=== PATIENT | female | born 1960 | race Caucasian/White ===

== ENCOUNTER 2019-09-16 14:35 | Inpatient (IN) ==
[2019-09-16] MEDS ORDERED: CATAPRES TAB 0.1 MG PO ONE (14:52)
--- NOTE | 2019-09-16 15:02 | DR.WEAKNES ---
HPI Time Seen Time Seen by Provider: 09/16/19 14:50 Primary Care Physician Primary Care Physician: NFD Complaints Chief Complaint Doctors Comments: Pt noticed weakness left arm at 1:00 am today. No cp or SOB. No headache or blurred vision. Decided to come to ED now. Weak left leg. Pt smokes. Doesn't go to a doctor. Takes no meds. Says she has had hi BP for years, untreated Chief Complaint:: PT. 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 PT. STATES HER LEFT LEG FEELS WEAK ALSO. IN TRIAGE, LEFT HAND MOTORCYCLE DELIVERER MUCH MORE WEAKER THAN THE RIGHT. Reviewed Nurses Notes Reviewed: Yes Source History Provided: Patient Mode of Arrival Mode of Arrival: Ambulatory Timing Onset of Chief Complaint: 09/16/19 Since onset, symptoms are:: Unchanged Symptom Onset: Known Onset of Symptoms Start Date: 09/16/19 Onset of Symptoms Start Time: 01:00 Duration Duration: Since Onset Context Onset: Spontaneous Symptoms: Weakness and Difficulty walking History of: None Stroke Symptoms: Weakness of limb Location Weakness Location: Left, Sided, Arm and Leg Associated Signs and Symptoms Associated Signs and Symptoms: None PMH PMH Past Medical History: No Past Medical History Comment: HTN, untreated Past Surgical History: Yes Surgical History: , Cholecystectomy, Hysterectomy and Other Past Surgical History Comment: RIGHT ANKLE Family History History of Family Medical Conditions: Yes Family Medical History: Diabetes Mellitus, [place], Coronary Artery Disease and Hypertension Social History Does patient currently use any type of tobacco product: Yes Have you used tobacco products in the last 12 months: Yes Type of Tobacco Use: Cigarettes Does any household member use tobacco: No Alcohol Use: None Do you use any recreational Drugs:: No Lives With: Family Lives Where: Home infectious screening In the last 2 months have you had wt loss of >10#?: NO Have you had fever, night sweats or hemotysis?: No Have you traveled outside the country in the last 6 months?: No Isolation: Standard ROS Review of Systems Constitutional: No Symptoms Reported; negative Fever Eyes: No Symptoms Reported; negative Blurred Vision Respiratoy: Non-Productive Cough and Wheezing; negative Short of Breath and Hemoptysis Cardiovascular: No Symptoms Reported; negative Chest Pain, Palpitations and Syncope Gastrointestinal/Abdominal: No Symptoms Reported Neurological: Weakness and Problems Walking; negative Headache Integumentary: No Symptoms Reported All Other Systems: Reviewed and Negative PE Vital Signs Vitals: Temperature 98.4 F Pulse Rate [Left Brachial] 69 Pulse Rate 84 Respiratory Rate 17 Blood Pressure [Left Arm] 143/71 Blood Pressure 203/94 O2 Sat by Pulse Oximetry 98 General Limitations: No Limitations General Appearance: Alert and In No Apparent Distress Eyes Eye exam: Normal Appearance and EOMI ENT ENT Exam: Normal Exam Neck Neck Exam: Normal Inspection, Full ROM and Other (no carotid bruit); negative Meningismus Chest Chest Inspection: Symmetric Chest Wall Rise Respiratory Respiratory Exam: Accessory Muscle Use Respiratory Exam: Bilateral: Wheezing and Bilateral: Crackles Cardiovascular Cardiovascular Exam: Regular Rate and Normal Rhythm Abdominal Exam Abdominal Exam: Normal Inspection Extremities Extremities Exam: Normal Inspection; negative Edema Neurologic Neurological Exam: Alert, Oriented X3 and Motor Sensory Deficit Patient Oriented To: Person, Place and Time Speech: Fluid Speech Motor Strength - LUE: 3/5 Motor Strength - RUE: 5/5 Motor Strength - LLE: 4/5 Motor Strength - RLE: 5/5 Psychiatric Psychiatric Exam: Normal Affect and Normal Mood Skin Skin Exam: Warm and Normal Color ROR Labs Reviewed Laboratory Results Reviewed?: Yes Result Diagrams: 09/16/19 15:13 09/16/19 15:13 Laboratory: WBC 7.0 X10^3/uL (3.6-10.0) 09/16/19 15:13 RBC 4.30 X10^6/uL (3.5-5.4) 09/16/19 15:13 Hgb 13.8 g/dL (12.0-16.0) 09/16/19 15:13 Hct 41.3 % (36.0-47.0) 09/16/19 15:13 MCV 96.0 fL (80.0-100.0) 09/16/19 15:13 MCH 32.1 pg (27.0-34.0) 09/16/19 15:13 MCHC 33.4 g/dL (33.0-35.0) 09/16/19 15:13 RDW 13.7 % (11.6-16.5) 09/16/19 15:13 Plt Count 112 X10^3/uL (150.0-450.0) L 09/16/19 15:13 MPV 9.0 fL (7.4-11.0) 09/16/19 15:13 Neut % (Auto) 46.1 % (42.0-75.0) 09/16/19 15:13 Lymph % (Auto) 44.8 % (21.0-51.0) 09/16/19 15:13 [place] % (Auto) 6.9 % (0.0-13.0) 09/16/19 15:13 Eos % (Auto) 1.3 % (0.9-2.9) 09/16/19 15:13 Baso % (Auto) 0.9 % (0.2-1.0) 09/16/19 15:13 Neut # (Auto) 3.2 x10^3/uL (2.2-4.8) 09/16/19 15:13 Lymph # (Auto) 3.1 X10^3/uL (1.3-2.9) H 09/16/19 15:13 [place] # (Auto) 0.5 x10^3/uL (0.3-0.8) 09/16/19 15:13 Eos # (Auto) 0.1 x10^3/uL (0.0-0.2) 09/16/19 15:13 Baso # (Auto) 0.1 X10^3/uL (0.0-0.1) 09/16/19 15:13 Absolute Nucleated RBC 0.0 /100WBC 09/16/19 15:13 Sodium 140 mmol/L (136-145) 09/16/19 15:13 Corrected Sodium TNP 09/16/19 15:13 Potassium 4.1 mmol/L (3.5-5.1) 09/16/19 15:13 Chloride 105 mmol/L (98-107) 09/16/19 15:13 Carbon Dioxide 22.6 mmol/L (21-32) 09/16/19 15:13 BUN 34 mg/dL (7-18) H 09/16/19 15:13 Creatinine 3.55 mg/dL (0.55-1.02) H 09/16/19 15:13 Est GFR (MDRD) Af Amer 17 (>60) L 09/16/19 15:13 Est GFR (MDRD) Non-Af 14 (>60) L 09/16/19 15:13 Glucose 97 mg/dL (65-99) 09/16/19 15:13 Calcium 9.1 mg/dL (8.5-10.1) 09/16/19 15:13 Corrected Calcium TNP 09/16/19 15:13 Total Bilirubin 0.40 mg/dL (0.2-1.0) 09/16/19 15:13 AST 13 Units/L (15-37) L 09/16/19 15:13 ALT 15 Units/L (12-78) 09/16/19 15:13 Alkaline Phosphatase 136 Units/L (46-116) H 09/16/19 15:13 Total Protein 7.6 g/dL (6.4-8.2) 09/16/19 15:13 Albumin 4.1 g/dL (3.4-5.0) 09/16/19 15:13 Globulin 3.5 g/dL (2.5-4.5) 09/16/19 15:13 Albumin/Globulin Ratio 1.2 Ratio (1.1-2.1) 09/16/19 15:13 XRAY XRAY Interpreted by: Radiologist X-ray Results: CT and MRI show acute-subacute CVA EKG Rate: 73 [place]: Normal Rhythm: NSR Block: None Hypertrophy: LVH ST: Normal Opioid Opioid Risk Tool Age (Singh box if 16-45): No History of Preadolescent Sexual Abuse: No Total: 0 Total Score Risk Category: Low Risk Copyright: Alistair MONREAL predicting aberrant behaviors ADDITIONAL NOTES Additional Notes Additional Notes: diag: CVA admit
[2019-09-16] MEDS ORDERED: CATAPRES TAB 0.1 MG ONE (15:20)
[2019-09-16 15:21] LABS: BASOPHILS # (AUTO) 0.1 X10^3/uL (0.0-0.1); BASOPHILS % (AUTO) 0.9 % (0.2-1.0); EOSINOPHILS # (AUTO) 0.1 x10^3/uL (0.0-0.2); EOSINOPHILS % (AUTO) 1.3 % (0.9-2.9); HEMATOCRIT 41.3 % (36.0-47.0); HEMOGLOBIN 13.8 g/dL (12.0-16.0); LYMPHOCYTES # (AUTO) 3.1 X10^3/uL (1.3-2.9); LYMPHOCYTES % (AUTO) 44.8 % (21.0-51.0); MEAN CORPUSCULAR HEMOGLOBIN 32.1 pg (27.0-34.0); MEAN CORPUSCULAR HGB CONC 33.4 g/dL (33.0-35.0); MONOCYTES # (AUTO) 0.5 x10^3/uL (0.3-0.8); MONOCYTES % (AUTO) 6.9 % (0.0-13.0); NEUTROPHILS # (AUTO) 3.2 x10^3/uL (2.2-4.8); NEUTROPHILS % (AUTO) 46.1 % (42.0-75.0); PLATELET COUNT 112 X10^3/uL (150.0-450.0); RED CELL DISTRIBUTION WIDTH 13.7 % (11.6-16.5)
--- NOTE | 2019-09-16 15:25 | RAD ---
HISTORYCOUGH, RADHA, PA/LAT ADULTCOMPARISONChest radiographs performed earlier today also on September 16, 2019FINDINGSThe patient is rotated. The cardiac silhouette is unremarkable . The lungs are clear without focal infiltrate or effusion.IMPRESSIONNo acute cardiopulmonary disease.Electronically signed by: LILA LOVE (Sep 16, 2019 15:24:06)
--- NOTE | 2019-09-16 15:28 | CT ---
HISTORYLeft arm weakness since 1 a.m.STUDYBRAIN W/O CONCOMPARISONNone.TECHNIQUEMultiple axial images of the head were obtained from the skull base to the vertex without administration of IV contrast. Sagittal and coronal reformatted images were performed. Automated exposure control (AEC) was utilized to adjust the MA and/or kV.FINDINGSThe sulci, cisterns and ventricles are age appropriate. There are confluent and scattered foci of low attenuation in the periventricular and subcortical white matter of both hemispheres. This is a nonspecific finding which likely represents microangiopathic change in a patient of this age.There is asymmetric low attenuation in the subcortical white matter of the right frontal mtz radiata, best demonstrated on axial images 17 and 18. There is a low-attenuation focus in the left frontal mtz radiata, best demonstrated on axial image 17. There several old lacunar infarcts in the basal ganglia bilaterally. There is no evidence of acute hemorrhage, mass, mass effect or midline shift. There are no abnormal intra-axial or extra-axial fluid collections.The visualized paranasal sinuses and mastoid air cells are predominantly clear. There is no evidence of acute osseous abnormality or significant soft tissue swelling.IMPRESSION1. Low-attenuation foci in the frontal lobes bilaterally. These are indeterminate findings, but may be seen in setting of microangiopathy, demyelination, or focal cerebral edema.2. Nonspecific white matter change.3. An MRI examination the brain with gadolinium is recommended for further evaluation.Electronically signed by: GIOVANI MASTERS (Sep 16, 2019 15:27:58)
[2019-09-16 15:35] LABS: ALANINE AMINOTRANSFERASE 15 Units/L (12-78); ALBUMIN 4.1 g/dL (3.4-5.0); ALKALINE PHOSPHATASE 136 Units/L (46-116); ASPARTATE AMINO TRANSFERASE 13 Units/L (15-37); BLOOD UREA NITROGEN 34 mg/dL (7-18); CALCIUM 9.1 mg/dL (8.5-10.1); CARBON DIOXIDE 22.6 mmol/L (21-32); CHLORIDE 105 mmol/L (98-107); CREATININE 3.55 mg/dL (0.55-1.02); SODIUM 140 mmol/L (136-145); TOTAL PROTEIN 7.6 g/dL (6.4-8.2); eGFR NON BLACK RACES 14 (>60)
--- NOTE | 2019-09-16 17:22 | MRI ---
HISTORYLeft-sided weakness.STUDYBRAIN W/O CONCOMPARISONCT from September 16, 2019.TECHNIQUEMultiplanar multi-sequence MRI of the brain was obtained utilizing standard departmental protocol. Sagittal and axial T1, axial T2, FLAIR, diffusion (DWI/ADC, GRE, and coronal T1 images through the brain were performed.FINDINGSThe sulci, cisterns and ventricles are age appropriate. There are confluent andscattered foci of T2 prolongation in the periventricular and subcortical white matter of both hemispheres. This is a nonspecific finding which likely represents microangiopathic change in a patient of this age.There is a small focus of decreased diffusion in the periventricular white matter of the right frontal mtz radiata. There is no evidence of acute hemorrhage, mass, mass effect, or midline shift. There are no abnormal intra-axial or extra-axial fluid collections. The major intracranial vascular flow voids appear intact. The vertebral arteries are codominant.IMPRESSION1. Small acute to early subacute infarct in the right frontal periventricular mtz radiata.2. Nonspecific white matter change.Electronically signed by: GIOVANI MASTERS (Sep 16, 2019 17:21:42)
[2019-09-16] MEDS ORDERED: ASPIRIN PO ONE (19:37)
[2019-09-16] MEDS ORDERED: ASPIRIN ONE (19:41)
[2019-09-16 21:39] VITALS: BMI 29.0
[2019-09-17] MEDS ORDERED: NS 1000 ML 1,000 ML IV SCH (04:00)
[2019-09-17 05:14] LABS: BASOPHILS # (AUTO) 0.1 X10^3/uL (0.0-0.1); BASOPHILS % (AUTO) 0.9 % (0.2-1.0); EOSINOPHILS # (AUTO) 0.1 x10^3/uL (0.0-0.2); EOSINOPHILS % (AUTO) 1.6 % (0.9-2.9); HEMATOCRIT 38.7 % (36.0-47.0); HEMOGLOBIN 12.9 g/dL (12.0-16.0); LYMPHOCYTES # (AUTO) 3.1 X10^3/uL (1.3-2.9); LYMPHOCYTES % (AUTO) 48.9 % (21.0-51.0); MEAN CORPUSCULAR HEMOGLOBIN 32.6 pg (27.0-34.0); MEAN CORPUSCULAR HGB CONC 33.5 g/dL (33.0-35.0); MEAN CORPUSCULAR VOLUME 97.3 fL (80.0-100.0); MEAN PLATELET VOLUME 9.5 fL (7.4-11.0); MONOCYTES # (AUTO) 0.4 x10^3/uL (0.3-0.8); MONOCYTES % (AUTO) 6.2 % (0.0-13.0); NEUTROPHILS # (AUTO) 2.7 x10^3/uL (2.2-4.8); NEUTROPHILS % (AUTO) 42.4 % (42.0-75.0); PLATELET COUNT 103 X10^3/uL (150.0-450.0); RED BLOOD COUNT 3.97 X10^6/uL (3.5-5.4); RED CELL DISTRIBUTION WIDTH 13.6 % (11.6-16.5); WHITE BLOOD COUNT 6.3 X10^3/uL (3.6-10.0)
[2019-09-17 05:15] LABS: BLOOD UREA NITROGEN 33 mg/dL (7-18); CALCIUM 8.5 mg/dL (8.5-10.1); CARBON DIOXIDE 22.5 mmol/L (21-32); CHLORIDE 107 mmol/L (98-107); CREATININE 3.49 mg/dL (0.55-1.02); SODIUM 140 mmol/L (136-145); eGFR NON BLACK RACES 14 (>60)
--- NOTE | 2019-09-17 09:22 | DR.H&P ---
H&P History & Physical for Day of: H&P Date: 09/17/19 Chief Complaint Chief Complaint: left arm weakness Allergies Allergies Allergy/AdvReac Type Severity Reaction Status Date / Time No Known Drug Allergies Allergy Verified 09/16/19 21:45 History of Present Illness History of Present Illness: Ms. Wu is a 59y/o female with a PMH of uncontrolled HTN presented with left arm weakness. She states she noticed it 1 am the previous night and thought it was just from sleeping but it kept getting worse where she was not able to lift the arm up and it felt heavy so she came to the ED. She states she was started on a blood pressure medication a week ago. She has no other pertinent medical history, she is a smoker. She denies weakness or numbness in the legs or other arm. She denies slurred speech or changes in mentation. ED work-up: CT, MRI-brain: small acute-subacute infarct in right frontal periventricular mtz radiata Meds: clonidine, asa Past Medical History Past Medical History: Hypertension and Kidney Stones Past Surgical History Surgical History: , Cholecystectomy, Hysterectomy and Ortho Surgery Family History Family Medical History: Diabetes Mellitus, [place] and Hypertension Social History Does patient currently use any type of tobacco product: Yes Have you used tobacco products in the last 12 months: Yes Type of Tobacco Use: Cigarettes Does any household member use tobacco: No Alcohol Use: None Drug Use: None Prescription drug monitoring program results: PDMP reviewed and no concerns identified Medications Home Medications: No Known Drug Allergies Allergy (Verified 09/16/19 21:45) CONTINUE taking the following medications NK 09/16/19 [History] Labs Result Diagrams: 09/17/19 04:56 09/17/19 04:56 Labs: Laboratory WBC 6.3 X10^3/uL (3.6-10.0) 09/17/19 04:56 RBC 3.97 X10^6/uL (3.5-5.4) 09/17/19 04:56 Hgb 12.9 g/dL (12.0-16.0) 09/17/19 04:56 Hct 38.7 % (36.0-47.0) 09/17/19 04:56 MCV 97.3 fL (80.0-100.0) 09/17/19 04:56 MCH 32.6 pg (27.0-34.0) 09/17/19 04:56 MCHC 33.5 g/dL (33.0-35.0) 09/17/19 04:56 RDW 13.6 % (11.6-16.5) 09/17/19 04:56 Plt Count 103 X10^3/uL (150.0-450.0) L 09/17/19 04:56 MPV 9.5 fL (7.4-11.0) 09/17/19 04:56 Neut % (Auto) 42.4 % (42.0-75.0) 09/17/19 04:56 Lymph % (Auto) 48.9 % (21.0-51.0) 09/17/19 04:56 [place] % (Auto) 6.2 % (0.0-13.0) 09/17/19 04:56 Eos % (Auto) 1.6 % (0.9-2.9) 09/17/19 04:56 Baso % (Auto) 0.9 % (0.2-1.0) 09/17/19 04:56 Neut # (Auto) 2.7 x10^3/uL (2.2-4.8) 09/17/19 04:56 Lymph # (Auto) 3.1 X10^3/uL (1.3-2.9) H 09/17/19 04:56 [place] # (Auto) 0.4 x10^3/uL (0.3-0.8) 09/17/19 04:56 Eos # (Auto) 0.1 x10^3/uL (0.0-0.2) 09/17/19 04:56 Baso # (Auto) 0.1 X10^3/uL (0.0-0.1) 09/17/19 04:56 Absolute Nucleated RBC 0.1 /100WBC 09/17/19 04:56 Sodium 140 mmol/L (136-145) 09/17/19 04:56 Corrected Sodium TNP 09/17/19 04:56 Potassium 4.4 mmol/L (3.5-5.1) 09/17/19 04:56 Chloride 107 mmol/L (98-107) 09/17/19 04:56 Carbon Dioxide 22.5 mmol/L (21-32) 09/17/19 04:56 BUN 33 mg/dL (7-18) H 09/17/19 04:56 Creatinine 3.49 mg/dL (0.55-1.02) H 09/17/19 04:56 Est GFR (MDRD) Af Amer 17 (>60) L 09/17/19 04:56 Est GFR (MDRD) Non-Af 14 (>60) L 09/17/19 04:56 Glucose 97 mg/dL (65-99) 09/17/19 04:56 Calcium 8.5 mg/dL (8.5-10.1) 09/17/19 04:56 Corrected Calcium TNP 09/16/19 15:13 Total Bilirubin 0.40 mg/dL (0.2-1.0) 09/16/19 15:13 AST 13 Units/L (15-37) L 09/16/19 15:13 ALT 15 Units/L (12-78) 09/16/19 15:13 Alkaline Phosphatase 136 Units/L (46-116) H 09/16/19 15:13 Total Protein 7.6 g/dL (6.4-8.2) 09/16/19 15:13 Albumin 4.1 g/dL (3.4-5.0) 09/16/19 15:13 Globulin 3.5 g/dL (2.5-4.5) 09/16/19 15:13 Albumin/Globulin Ratio 1.2 Ratio (1.1-2.1) 09/16/19 15:13 Review of Systems Constitutional: Weakness Eyes: No Symptoms Reported ENT: No Symptoms Reported Respiratory: No Symptoms Reported Cardiovascular: No Symptoms Reported Gastrointestinal: No Symptoms Reported Genitourinary: No Symptoms Reported Musculoskeletal: Arm Pain Skin: No Symptoms Reported Neurological: Weakness and Numbness Physical Exam Vital Signs: Temperature 98.7 F Pulse Rate [Left Brachial] 62 Pulse Rate 59 Respiratory Rate 17 Blood Pressure [Left Arm] 123/60 Blood Pressure 132/67 O2 Sat by Pulse Oximetry 96 Oriented: Normal Eyes: Normal Respiratory: Clear Throughout Cardiovascular: Normal Auscultation: Bowel Sounds: Normal Palpation: Normal Tenderness: Normal Skin: Normal Musculoskeletal: Left (left arm weakness, 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 ), Arm and Leg (weak left leg , RLE intact ) Psychiatric: Normal Mood Description: Calm Affect: Normal Speech Pattern: Clear and Appropriate Assessment/Plan (1) CVA (cerebral vascular accident): Qualifiers: CVA mechanism: unspecified Qualified Code(s): I63.9 - Cerebral infarction, unspecified Status: Acute Plan: Left arm weakness, MRI brain: small acute-subacute right frontal infarct Continue asa, add statin Echo and Carotid U/S ordered Continue tele (2) Acute left hemiparesis: Status: Acute Plan: Speech, physical and occupational therapy (3) Uncontrolled hypertension: Status: Acute Plan: BP: 132/67 Will monitor (4) TENZIN (acute kidney injury): Status: Acute Plan: Cr: 3.55, now 3.49, unclear about baseline renal function. Will start gentle hydration, monitor AM labs Obtain last labs from PCP, patient was seeing Nephro due to hx of renal stones. (5) Hx of renal calculi: Status: Acute Review H&P Reviewed: Yes Patient was examined?: Yes
[2019-09-17] MEDS: NS 1000 ML 1,000 ML IV SCH ×3 (09:23→23:59)
[2019-09-17] MEDS: ASPIRIN EC 81 MG PO SCH (09:35)
[2019-09-17] MEDS: LIPITOR TAB 40 MG PO SCH (09:36)
[2019-09-17] MEDS ORDERED: APRESOLINE INJ 20 MG VIAL IVP PRN (11:00)
--- NOTE | 2019-09-17 11:39 | VAS ---
HISTORY: Concern for carotid artery stenosis. [CVA]. Carotid atherosclerosis.EXAM: BILATERAL DOPPLER CAROTID ULTRASOUND EXAMTechnique: Multiple ace scale and color flow Doppler images of the right and left carotid arterial system were obtained. The vertebral arterial system was evaluated as well.Findings:Nonocclusive color flow Doppler is seen throughout the right and left carotid arterial system. No hemodynamically significant carotid arterial stenosis is seen based on velocity criteria. There is [moderate] atherosclerosis and [hard atherosclerotic] plaque formation of the bilateral carotid bulbs and ICAs with associated intimal thickening but [without] evidence for high-grade stenosis (>70%) or occlusion of the carotid arteries. The right and left vertebral artery demonstrate antegrade flow.IMPRESSION:[Moderate] atherosclerosis and [hard atherosclerotic] plaque formation of the bilateral carotid bulbs and [in both] ICAs with [minor] associated carotid intimal thickening but without evidence for high-grade stenosis or occlusion of the carotid arteries, based on Doppler velocity criteria. Appropriate, antegrade, vertebral arterial flow.[place] right ICA velocity: [76] centimeter/seconds.Peak right CCA velocity: [77] centimeter/seconds.[place] left ICA velocity: [61] centimeter/seconds.Peak left CCA velocity: [72] centimeter/seconds.Electronically signed by: CAM LUNA III (Sep 17, 2019 11:37:33)
[2019-09-18] MEDS: NS 1000 ML 1,000 ML IV SCH ×2 (05:28→09:17)
[2019-09-18 05:38] LABS: BASOPHILS # (AUTO) 0.1 X10^3/uL (0.0-0.1); BASOPHILS % (AUTO) 0.8 % (0.2-1.0); EOSINOPHILS # (AUTO) 0.1 x10^3/uL (0.0-0.2); EOSINOPHILS % (AUTO) 1.6 % (0.9-2.9); HEMATOCRIT 34.3 % (36.0-47.0); HEMOGLOBIN 11.7 g/dL (12.0-16.0); LYMPHOCYTES # (AUTO) 3.2 X10^3/uL (1.3-2.9); LYMPHOCYTES % (AUTO) 47.6 % (21.0-51.0); MEAN CORPUSCULAR HGB CONC 34.1 g/dL (33.0-35.0); MEAN CORPUSCULAR VOLUME 96.7 fL (80.0-100.0); MEAN PLATELET VOLUME 9.7 fL (7.4-11.0); MONOCYTES # (AUTO) 0.4 x10^3/uL (0.3-0.8); MONOCYTES % (AUTO) 6.3 % (0.0-13.0); NEUTROPHILS # (AUTO) 2.9 x10^3/uL (2.2-4.8); NEUTROPHILS % (AUTO) 43.7 % (42.0-75.0); PLATELET COUNT 91 X10^3/uL (150.0-450.0); RED BLOOD COUNT 3.55 X10^6/uL (3.5-5.4); RED CELL DISTRIBUTION WIDTH 13.6 % (11.6-16.5); WHITE BLOOD COUNT 6.7 X10^3/uL (3.6-10.0)
[2019-09-18 05:44] LABS: BLOOD UREA NITROGEN 31 mg/dL (7-18); CALCIUM 8.2 mg/dL (8.5-10.1); CARBON DIOXIDE 20.5 mmol/L (21-32); CHLORIDE 111 mmol/L (98-107); CREATININE 3.18 mg/dL (0.55-1.02); SODIUM 141 mmol/L (136-145); eGFR NON BLACK RACES 16 (>60)
--- NOTE | 2019-09-18 09:12 | PCM.PROG ---
Progress Note Progress Note for Day of Date of Exam: 09/18/19 Subjective Subjective: No acute events overnight. Patient states she is feeling better. She has been ambulating in the room and reports no weakness in her legs. Her left arm weakness has improved. She is able to move the arm and lift it up. Her strength is better than yesterday. She has been eating and drinking well. Past labs done by PCP show Cr of 3-4, currently its 3.18, slightly improved since admission. Will continue gentle hydration with NS at 50cc/hr, monitor AM labs. Will check with patient's pharmacy about her medications. Continue PT/OT. Echo and carotid results reviewed with the patient. Continue asa, statin. Monitor hgb and platelets. Denies active bleeding. Past Medical Family Social History Past Med/Fam/Surg Hx: No changes since H&P Allergies: Allergies No Known Drug Allergies Allergy (Verified 09/16/19 21:45) Review of Systems ROS: No change since H&P Vital Signs and I&O's Vital Signs: Temperature 97.7 F Pulse Rate [Left Brachial] 62 Pulse Rate 56 Respiratory Rate 16 Blood Pressure [Left Arm] 123/60 Blood Pressure 157/69 O2 Sat by Pulse Oximetry 96 Intake and Output: Intake & Output 09/15/19 09/16/19 09/17/19 09/18/19 23:59 23:59 23:59 23:59 Intake Total 210 / 210 3248 / 3248 Balance 210 / 210 3248 / 3248 Physical Exam Oriented: Normal Eyes: Normal Cardiovascular: Normal Auscultation: Bowel Sounds: Normal Tenderness: Normal Skin: Normal Musculoskeletal: Left (left arm weakness improved, hrbp better than yesterday ), Arm and Leg (normal strength in both legs ) Psychiatric: Normal Mood Description: Calm Affect: Normal Speech Pattern: Clear and Appropriate Laboratory and Diagnostics Result Diagrams: 09/18/19 05:15 09/18/19 05:15 Labs: Laboratory WBC 6.7 X10^3/uL (3.6-10.0) 09/18/19 05:15 RBC 3.55 X10^6/uL (3.5-5.4) 09/18/19 05:15 Hgb 11.7 g/dL (12.0-16.0) L 09/18/19 05:15 Hct 34.3 % (36.0-47.0) L 09/18/19 05:15 MCV 96.7 fL (80.0-100.0) 09/18/19 05:15 MCH 33.0 pg (27.0-34.0) 09/18/19 05:15 MCHC 34.1 g/dL (33.0-35.0) 09/18/19 05:15 RDW 13.6 % (11.6-16.5) 09/18/19 05:15 Plt Count 91 X10^3/uL (150.0-450.0) L 09/18/19 05:15 MPV 9.7 fL (7.4-11.0) 09/18/19 05:15 Neut % (Auto) 43.7 % (42.0-75.0) 09/18/19 05:15 Lymph % (Auto) 47.6 % (21.0-51.0) 09/18/19 05:15 [place] % (Auto) 6.3 % (0.0-13.0) 09/18/19 05:15 Eos % (Auto) 1.6 % (0.9-2.9) 09/18/19 05:15 Baso % (Auto) 0.8 % (0.2-1.0) 09/18/19 05:15 Neut # (Auto) 2.9 x10^3/uL (2.2-4.8) 09/18/19 05:15 Lymph # (Auto) 3.2 X10^3/uL (1.3-2.9) H 09/18/19 05:15 [place] # (Auto) 0.4 x10^3/uL (0.3-0.8) 09/18/19 05:15 Eos # (Auto) 0.1 x10^3/uL (0.0-0.2) 09/18/19 05:15 Baso # (Auto) 0.1 X10^3/uL (0.0-0.1) 09/18/19 05:15 Absolute Nucleated RBC 0.0 /100WBC 09/18/19 05:15 Sodium 141 mmol/L (136-145) 09/18/19 05:15 Corrected Sodium TNP 09/18/19 05:15 Potassium 4.7 mmol/L (3.5-5.1) 09/18/19 05:15 Chloride 111 mmol/L (98-107) H 09/18/19 05:15 Carbon Dioxide 20.5 mmol/L (21-32) L 09/18/19 05:15 BUN 31 mg/dL (7-18) H 09/18/19 05:15 Creatinine 3.18 mg/dL (0.55-1.02) H 09/18/19 05:15 Est GFR (MDRD) Af Amer 19 (>60) L 09/18/19 05:15 Est GFR (MDRD) Non-Af 16 (>60) L 09/18/19 05:15 Glucose 99 mg/dL (65-99) 09/18/19 05:15 Calcium 8.2 mg/dL (8.5-10.1) L 09/18/19 05:15 Corrected Calcium TNP 09/16/19 15:13 Total Bilirubin 0.40 mg/dL (0.2-1.0) 09/16/19 15:13 AST 13 Units/L (15-37) L 09/16/19 15:13 ALT 15 Units/L (12-78) 09/16/19 15:13 Alkaline Phosphatase 136 Units/L (46-116) H 09/16/19 15:13 Total Protein 7.6 g/dL (6.4-8.2) 09/16/19 15:13 Albumin 4.1 g/dL (3.4-5.0) 09/16/19 15:13 Globulin 3.5 g/dL (2.5-4.5) 09/16/19 15:13 Albumin/Globulin Ratio 1.2 Ratio (1.1-2.1) 09/16/19 15:13 Plan (1) CVA (cerebral vascular accident): Status: Acute Qualifiers: CVA mechanism: unspecified Qualified Code(s): I63.9 - Cerebral infarction, unspecified Plan: Left arm weakness, MRI brain: small acute-subacute right frontal infarct Continue asa, add statin Echo: EF 56%, no significant valvular disease Carotid U/S: moderate plaque, no significant stenosis Continue tele (2) Acute left hemiparesis: Status: Acute Plan: Continue physical and occupational therapy Speech therapy: no issues noted (3) Uncontrolled hypertension: Status: Acute Plan: BP: 132/67 Will monitor (4) TENZIN (acute kidney injury): Status: Acute Plan: Cr: 3.55, now 3.18 Labs from PCP show Cr between 3-4 Continue gentle hydration with NS at 50cc/hr (5) Hx of renal calculi: Status: Acute (6) Thrombocytopenia: Status: Acute
[2019-09-18] MEDS: LIPITOR TAB 40 MG PO SCH (09:17)
[2019-09-18] MEDS: ASPIRIN EC 81 MG PO SCH (09:17)
[2019-09-18] MEDS ORDERED: OLMESARTAN HYDROCHLOROTHIAZIDE PO SCH (13:30)
[2019-09-18] MEDS: BENICAR TAB 40 MG PO SCH (16:30)
[2019-09-18] MEDS: HYDROCHLOROTHIAZIDE 12.5 MG CAP PO SCH (16:31)
[2019-09-19 06:51] LABS: BASOPHILS % (AUTO) 0.6 % (0.2-1.0); EOSINOPHILS # (AUTO) 0.1 x10^3/uL (0.0-0.2); EOSINOPHILS % (AUTO) 1.2 % (0.9-2.9); HEMATOCRIT 35.1 % (36.0-47.0); HEMOGLOBIN 11.9 g/dL (12.0-16.0); LYMPHOCYTES # (AUTO) 2.7 X10^3/uL (1.3-2.9); LYMPHOCYTES % (AUTO) 36.9 % (21.0-51.0); MEAN CORPUSCULAR HEMOGLOBIN 32.4 pg (27.0-34.0); MEAN CORPUSCULAR HGB CONC 33.8 g/dL (33.0-35.0); MEAN CORPUSCULAR VOLUME 95.6 fL (80.0-100.0); MEAN PLATELET VOLUME 9.5 fL (7.4-11.0); MONOCYTES # (AUTO) 0.4 x10^3/uL (0.3-0.8); MONOCYTES % (AUTO) 5.3 % (0.0-13.0); NEUTROPHILS # (AUTO) 4.1 x10^3/uL (2.2-4.8); PLATELET COUNT 94 X10^3/uL (150.0-450.0); RED BLOOD COUNT 3.67 X10^6/uL (3.5-5.4); RED CELL DISTRIBUTION WIDTH 13.6 % (11.6-16.5); WHITE BLOOD COUNT 7.3 X10^3/uL (3.6-10.0)
[2019-09-19 06:57] LABS: BLOOD UREA NITROGEN 33 mg/dL (7-18); CALCIUM 8.2 mg/dL (8.5-10.1); CARBON DIOXIDE 21.6 mmol/L (21-32); CHLORIDE 111 mmol/L (98-107); CREATININE 3.12 mg/dL (0.55-1.02); SODIUM 141 mmol/L (136-145); eGFR NON BLACK RACES 16 (>60)
--- NOTE | 2019-09-19 08:14 | W.DIS.FURT ---
Summary of Discharge Discharge Summary of Date Date of Exam: 09/19/19 Admission Date Date of Admission: 09/16/19 Admission Diagnosis Hospital Course: Ms. Wu is a 59y/o female with a PMH of uncontrolled HTN presented with left arm weakness. She states she noticed it 1 am the previous night and thought it was just from sleeping but it kept getting worse where she was not able to lift the arm up and it felt heavy so she came to the ED. She states she was started on a blood pressure medication a week ago. She has no other pertinent medical history, she is a smoker. She denies weakness or numbness in the legs or other arm. She denies slurred speech or changes in mentation. CT, MRI-brain: small acute-subacute infarct in right frontal periventricular mtz radiata. She was given asa and clonidine. Patient's left arm weakness improved. PT, OT and speech therapy were consulted. Carotid U/S showed moderate plaque but no significant stenosis. Echo showed EF 55-60% with grade 1 Diastolic dysfunction.Patient had no other weakness. Her arm weakness improved with therapy and was stable for discharge home. She was sent home on aspirin, statin and home medications for BP control. She will follow up with PCP in one week. Tobbaco cessation was also discussed. Vital Signs: Vital Signs (72 hours) 09/16/19 14:36 09/16/19 15:24 09/16/19 16:30 Temperature 98.4 F Pulse Rate 84 Pulse Rate [Left Brachial] Respiratory Rate 20 Blood Pressure 203/94 139/72 Blood Pressure [Left Arm] 182/91 O2 Sat by Pulse Oximetry 98 09/16/19 17:00 09/16/19 18:00 09/16/19 18:07 Temperature Pulse Rate Pulse Rate [Left Brachial] 69 Respiratory Rate 17 Blood Pressure 141/70 138/69 Blood Pressure [Left Arm] 143/71 O2 Sat by Pulse Oximetry 98 09/16/19 19:00 09/16/19 20:30 09/16/19 21:00 Temperature 98.9 F Pulse Rate 76 77 Pulse Rate [Left Brachial] 76 77 Respiratory Rate 22 18 Blood Pressure 137/75 181/85 176/80 Blood Pressure [Left Arm] 181/85 176/80 O2 Sat by Pulse Oximetry 97 98 09/16/19 22:00 09/16/19 23:00 09/17/19 00:00 Temperature 97.7 F Pulse Rate 67 62 75 Pulse Rate [Left Brachial] 67 62 Respiratory Rate 16 14 20 Blood Pressure 148/67 123/60 139/63 Blood Pressure [Left Arm] 148/63 123/60 O2 Sat by Pulse Oximetry 95 97 97 09/17/19 01:00 09/17/19 02:00 09/17/19 03:00 Temperature Pulse Rate 60 60 69 Pulse Rate [Left Brachial] Respiratory Rate 18 20 15 Blood Pressure 148/65 141/76 119/55 Blood Pressure [Left Arm] O2 Sat by Pulse Oximetry 95 96 96 09/17/19 04:00 09/17/19 05:00 09/17/19 06:00 Temperature 98.7 F Pulse Rate 57 L 67 59 L Pulse Rate [Left Brachial] Respiratory Rate 18 21 17 Blood Pressure 127/64 128/58 132/67 Blood Pressure [Left Arm] O2 Sat by Pulse Oximetry 97 94 L 96 09/17/19 07:00 09/17/19 08:00 09/17/19 09:04 Temperature 99.9 F H Pulse Rate 74 68 67 Pulse Rate [Left Brachial] Respiratory Rate 49 H 16 Blood Pressure 151/67 122/64 Blood Pressure [Left Arm] O2 Sat by Pulse Oximetry 97 94 L 09/17/19 09:18 09/17/19 10:00 09/17/19 10:01 Temperature Pulse Rate 72 82 64 Pulse Rate [Left Brachial] Respiratory Rate 26 H 40 H 30 H Blood Pressure 122/75 156/66 Blood Pressure [Left Arm] O2 Sat by Pulse Oximetry 95 98 97 09/17/19 11:00 09/17/19 12:00 09/17/19 13:00 Temperature 98.6 F Pulse Rate 76 75 75 Pulse Rate [Left Brachial] Respiratory Rate 28 H 18 18 Blood Pressure 140/65 146/65 116/55 Blood Pressure [Left Arm] O2 Sat by Pulse Oximetry 97 97 93 L 09/17/19 14:00 09/17/19 15:00 09/17/19 15:09 Temperature Pulse Rate 77 77 Pulse Rate [Left Brachial] Respiratory Rate 13 16 Blood Pressure 131/66 141/78 133/67 Blood Pressure [Left Arm] O2 Sat by Pulse Oximetry 95 97 09/17/19 16:00 09/17/19 16:01 09/17/19 17:00 Temperature 99.7 F H Pulse Rate 68 71 69 Pulse Rate [Left Brachial] Respiratory Rate 19 21 17 Blood Pressure 152/74 144/72 Blood Pressure [Left Arm] O2 Sat by Pulse Oximetry 94 L 94 L 95 09/17/19 18:00 09/17/19 19:00 09/17/19 20:00 Temperature 98.6 F Pulse Rate 68 82 68 Pulse Rate [Left Brachial] Respiratory Rate 18 19 22 Blood Pressure 151/73 157/89 149/72 Blood Pressure [Left Arm] O2 Sat by Pulse Oximetry 96 96 98 09/17/19 21:00 09/17/19 22:00 09/17/19 23:00 Temperature Pulse Rate 74 64 70 Pulse Rate [Left Brachial] Respiratory Rate 20 22 22 Blood Pressure 132/60 161/82 142/65 Blood Pressure [Left Arm] O2 Sat by Pulse Oximetry 95 97 96 09/17/19 23:15 09/17/19 23:30 09/17/19 23:45 Temperature Pulse Rate 70 72 64 Pulse Rate [Left Brachial] Respiratory Rate 17 26 H 15 Blood Pressure Blood Pressure [Left Arm] O2 Sat by Pulse Oximetry 97 97 97 09/18/19 00:00 09/18/19 00:15 09/18/19 00:30 Temperature Pulse Rate 67 59 L 66 Pulse Rate [Left Brachial] Respiratory Rate 20 18 14 Blood Pressure 144/81 Blood Pressure [Left Arm] O2 Sat by Pulse Oximetry 97 95 93 L 09/18/19 00:45 09/18/19 01:00 09/18/19 01:15 Temperature Pulse Rate 58 L 61 63 Pulse Rate [Left Brachial] Respiratory Rate 15 21 26 H Blood Pressure 150/68 Blood Pressure [Left Arm] O2 Sat by Pulse Oximetry 95 95 95 09/18/19 01:30 09/18/19 01:45 09/18/19 02:00 Temperature Pulse Rate 62 70 59 L Pulse Rate [Left Brachial] Respiratory Rate 22 20 25 H Blood Pressure 168/74 Blood Pressure [Left Arm] O2 Sat by Pulse Oximetry 96 97 95 09/18/19 02:15 09/18/19 02:30 09/18/19 02:45 Temperature Pulse Rate 77 59 L 62 Pulse Rate [Left Brachial] Respiratory Rate 43 H 26 H 26 H Blood Pressure Blood Pressure [Left Arm] O2 Sat by Pulse Oximetry 97 96 96 09/18/19 03:00 09/18/19 03:15 09/18/19 03:30 Temperature Pulse Rate 63 69 61 Pulse Rate [Left Brachial] Respiratory Rate 19 15 13 Blood Pressure 155/70 Blood Pressure [Left Arm] O2 Sat by Pulse Oximetry 95 95 96 09/18/19 03:45 09/18/19 04:00 09/18/19 04:15 Temperature 97.7 F Pulse Rate 60 59 L 57 L Pulse Rate [Left Brachial] Respiratory Rate 14 14 14 Blood Pressure 160/71 Blood Pressure [Left Arm] O2 Sat by Pulse Oximetry 94 L 98 95 09/18/19 04:30 09/18/19 04:45 09/18/19 05:00 Temperature Pulse Rate 61 62 57 L Pulse Rate [Left Brachial] Respiratory Rate 13 16 13 Blood Pressure 150/70 Blood Pressure [Left Arm] O2 Sat by Pulse Oximetry 95 95 96 09/18/19 05:15 09/18/19 05:30 09/18/19 05:45 Temperature Pulse Rate 62 55 L 56 L Pulse Rate [Left Brachial] Respiratory Rate 18 21 13 Blood Pressure Blood Pressure [Left Arm] O2 Sat by Pulse Oximetry 97 96 95 09/18/19 06:00 09/18/19 06:15 09/18/19 06:30 Temperature Pulse Rate 56 L 59 L 60 Pulse Rate [Left Brachial] Respiratory Rate 14 14 28 H Blood Pressure 157/69 Blood Pressure [Left Arm] O2 Sat by Pulse Oximetry 96 98 96 09/18/19 06:45 09/18/19 07:00 09/18/19 07:15 Temperature Pulse Rate 68 61 58 L Pulse Rate [Left Brachial] Respiratory Rate 17 14 13 Blood Pressure 152/71 Blood Pressure [Left Arm] O2 Sat by Pulse Oximetry 96 96 97 09/18/19 07:30 09/18/19 07:45 09/18/19 08:00 Temperature Pulse Rate 70 71 66 Pulse Rate [Left Brachial] Respiratory Rate 14 18 17 Blood Pressure 143/67 Blood Pressure [Left Arm] O2 Sat by Pulse Oximetry 97 93 L 96 09/18/19 08:15 09/18/19 08:30 09/18/19 08:45 Temperature Pulse Rate 75 64 62 Pulse Rate [Left Brachial] Respiratory Rate 22 19 18 Blood Pressure Blood Pressure [Left Arm] O2 Sat by Pulse Oximetry 98 96 97 09/18/19 09:00 09/18/19 09:15 09/18/19 09:30 Temperature Pulse Rate 60 74 66 Pulse Rate [Left Brachial] Respiratory Rate 16 34 H 23 Blood Pressure 150/76 Blood Pressure [Left Arm] O2 Sat by Pulse Oximetry 98 100 96 09/18/19 09:46 09/18/19 10:00 09/18/19 10:15 Temperature Pulse Rate 72 63 69 Pulse Rate [Left Brachial] Respiratory Rate 16 18 24 Blood Pressure 160/86 Blood Pressure [Left Arm] O2 Sat by Pulse Oximetry 100 97 97 09/18/19 10:30 09/18/19 10:45 09/18/19 11:00 Temperature Pulse Rate 62 67 66 Pulse Rate [Left Brachial] Respiratory Rate 15 20 17 Blood Pressure 165/77 Blood Pressure [Left Arm] O2 Sat by Pulse Oximetry 96 99 99 09/18/19 11:15 09/18/19 11:30 09/18/19 11:45 Temperature Pulse Rate 63 66 63 Pulse Rate [Left Brachial] Respiratory Rate 16 16 18 Blood Pressure Blood Pressure [Left Arm] O2 Sat by Pulse Oximetry 98 97 97 09/18/19 12:00 09/18/19 12:15 09/18/19 12:30 Temperature 99.8 F H Pulse Rate 62 64 69 Pulse Rate [Left Brachial] Respiratory Rate 18 33 H 29 H Blood Pressure 162/73 Blood Pressure [Left Arm] O2 Sat by Pulse Oximetry 98 99 97 09/18/19 12:45 09/18/19 13:00 09/18/19 13:15 Temperature Pulse Rate 73 66 68 Pulse Rate [Left Brachial] Respiratory Rate 30 H 15 14 Blood Pressure 149/67 Blood Pressure [Left Arm] O2 Sat by Pulse Oximetry 96 95 94 L 09/18/19 13:30 09/18/19 13:45 09/18/19 14:00 Temperature Pulse Rate 71 68 68 Pulse Rate [Left Brachial] Respiratory Rate 13 28 H 16 Blood Pressure 165/74 Blood Pressure [Left Arm] O2 Sat by Pulse Oximetry 95 96 97 09/18/19 14:15 09/18/19 14:30 09/18/19 14:45 Temperature Pulse Rate 70 66 91 H Pulse Rate [Left Brachial] Respiratory Rate 15 14 35 H Blood Pressure Blood Pressure [Left Arm] O2 Sat by Pulse Oximetry 92 L 95 94 L 09/18/19 15:00 09/18/19 15:15 09/18/19 15:30 Temperature Pulse Rate 64 78 74 Pulse Rate [Left Brachial] Respiratory Rate 18 29 H 30 H Blood Pressure 153/72 Blood Pressure [Left Arm] O2 Sat by Pulse Oximetry 97 99 100 09/18/19 15:45 09/18/19 16:00 09/18/19 16:15 Temperature 98.1 F Pulse Rate 68 72 67 Pulse Rate [Left Brachial] Respiratory Rate 18 22 32 H Blood Pressure 147/94 Blood Pressure [Left Arm] O2 Sat by Pulse Oximetry 99 99 98 09/18/19 16:30 09/18/19 16:45 09/18/19 17:00 Temperature Pulse Rate 67 67 67 Pulse Rate [Left Brachial] Respiratory Rate 20 18 20 Blood Pressure 156/75 Blood Pressure [Left Arm] O2 Sat by Pulse Oximetry 99 97 99 09/18/19 17:36 09/18/19 17:45 09/18/19 18:00 Temperature Pulse Rate 75 69 76 Pulse Rate [Left Brachial] Respiratory Rate 26 H 33 H Blood Pressure 153/72 Blood Pressure [Left Arm] O2 Sat by Pulse Oximetry 99 98 100 09/18/19 18:15 09/18/19 19:00 09/18/19 20:00 Temperature 98.3 F Pulse Rate 66 66 68 Pulse Rate [Left Brachial] Respiratory Rate 27 H 27 H 26 H Blood Pressure 156/73 142/61 Blood Pressure [Left Arm] O2 Sat by Pulse Oximetry 97 97 97 09/18/19 21:00 09/18/19 22:00 09/18/19 23:00 Temperature Pulse Rate 74 71 65 Pulse Rate [Left Brachial] Respiratory Rate 34 H 20 19 Blood Pressure 175/89 175/81 144/65 Blood Pressure [Left Arm] O2 Sat by Pulse Oximetry 98 95 96 09/19/19 00:00 09/19/19 00:15 09/19/19 00:30 Temperature 98.4 F Pulse Rate 67 77 74 Pulse Rate [Left Brachial] Respiratory Rate 21 37 H 23 Blood Pressure 172/81 Blood Pressure [Left Arm] O2 Sat by Pulse Oximetry 97 98 96 09/19/19 00:45 09/19/19 01:00 09/19/19 01:15 Temperature Pulse Rate 67 73 72 Pulse Rate [Left Brachial] Respiratory Rate 20 33 H 17 Blood Pressure 173/81 Blood Pressure [Left Arm] O2 Sat by Pulse Oximetry 94 L 96 98 09/19/19 01:30 09/19/19 01:45 09/19/19 02:00 Temperature Pulse Rate 75 67 72 Pulse Rate [Left Brachial] Respiratory Rate 32 H 15 22 Blood Pressure 172/80 Blood Pressure [Left Arm] O2 Sat by Pulse Oximetry 97 95 97 09/19/19 02:15 09/19/19 02:30 09/19/19 02:45 Temperature Pulse Rate 70 75 65 Pulse Rate [Left Brachial] Respiratory Rate 23 25 H 14 Blood Pressure Blood Pressure [Left Arm] O2 Sat by Pulse Oximetry 98 99 96 09/19/19 03:00 09/19/19 03:15 09/19/19 03:30 Temperature Pulse Rate 67 67 67 Pulse Rate [Left Brachial] Respiratory Rate 37 H 17 21 Blood Pressure 179/81 Blood Pressure [Left Arm] O2 Sat by Pulse Oximetry 95 93 L 94 L 09/19/19 03:45 09/19/19 03:46 09/19/19 03:54 Temperature Pulse Rate 85 77 69 Pulse Rate [Left Brachial] Respiratory Rate 24 17 18 Blood Pressure 177/86 177/86 165/82 Blood Pressure [Left Arm] O2 Sat by Pulse Oximetry 97 99 96 09/19/19 03:55 09/19/19 04:00 09/19/19 04:05 Temperature 98.1 F Pulse Rate 68 63 67 Pulse Rate [Left Brachial] Respiratory Rate 17 17 17 Blood Pressure 164/77 161/72 161/68 Blood Pressure [Left Arm] O2 Sat by Pulse Oximetry 96 98 98 09/19/19 04:10 09/19/19 04:15 09/19/19 04:30 Temperature Pulse Rate 66 72 67 Pulse Rate [Left Brachial] Respiratory Rate 15 16 54 H Blood Pressure 155/71 150/65 Blood Pressure [Left Arm] O2 Sat by Pulse Oximetry 97 97 97 09/19/19 04:45 09/19/19 05:00 09/19/19 05:15 Temperature Pulse Rate 68 67 62 Pulse Rate [Left Brachial] Respiratory Rate 15 15 14 Blood Pressure 177/77 Blood Pressure [Left Arm] O2 Sat by Pulse Oximetry 96 94 L 91 L 09/19/19 05:30 09/19/19 05:36 09/19/19 05:45 Temperature Pulse Rate 68 66 Pulse Rate [Left Brachial] Respiratory Rate 17 17 Blood Pressure 147/70 147/70 Blood Pressure [Left Arm] O2 Sat by Pulse Oximetry 96 96 09/19/19 06:00 09/19/19 06:15 09/19/19 06:30 Temperature Pulse Rate 73 63 66 Pulse Rate [Left Brachial] Respiratory Rate 32 H 15 14 Blood Pressure 128/62 Blood Pressure [Left Arm] O2 Sat by Pulse Oximetry 95 97 96 09/19/19 06:45 09/19/19 07:00 09/19/19 07:15 Temperature Pulse Rate 68 67 64 Pulse Rate [Left Brachial] Respiratory Rate 54 H 16 52 H Blood Pressure 143/65 Blood Pressure [Left Arm] O2 Sat by Pulse Oximetry 97 95 97 09/19/19 07:30 Temperature Pulse Rate 61 Pulse Rate [Left Brachial] Respiratory Rate 15 Blood Pressure Blood Pressure [Left Arm] O2 Sat by Pulse Oximetry 97 Labs: Laboratory Last Values WBC 7.3 X10^3/uL (3.6-10.0) 09/19/19 06:10 RBC 3.67 X10^6/uL (3.5-5.4) 09/19/19 06:10 Hgb 11.9 g/dL (12.0-16.0) L 09/19/19 06:10 Hct 35.1 % (36.0-47.0) L 09/19/19 06:10 MCV 95.6 fL (80.0-100.0) 09/19/19 06:10 MCH 32.4 pg (27.0-34.0) 09/19/19 06:10 MCHC 33.8 g/dL (33.0-35.0) 09/19/19 06:10 RDW 13.6 % (11.6-16.5) 09/19/19 06:10 Plt Count 94 X10^3/uL (150.0-450.0) L 09/19/19 06:10 MPV 9.5 fL (7.4-11.0) 09/19/19 06:10 Neut % (Auto) 56.0 % (42.0-75.0) 09/19/19 06:10 Lymph % (Auto) 36.9 % (21.0-51.0) 09/19/19 06:10 Churchill % (Auto) 5.3 % (0.0-13.0) 09/19/19 06:10 Eos % (Auto) 1.2 % (0.9-2.9) 09/19/19 06:10 Baso % (Auto) 0.6 % (0.2-1.0) 09/19/19 06:10 Neut # (Auto) 4.1 x10^3/uL (2.2-4.8) 09/19/19 06:10 Lymph # (Auto) 2.7 X10^3/uL (1.3-2.9) 09/19/19 06:10 Churchill # (Auto) 0.4 x10^3/uL (0.3-0.8) 09/19/19 06:10 Eos # (Auto) 0.1 x10^3/uL (0.0-0.2) 09/19/19 06:10 Baso # (Auto) 0.0 X10^3/uL (0.0-0.1) 09/19/19 06:10 Absolute Nucleated RBC 0.0 /100WBC 09/19/19 06:10 Sodium 141 mmol/L (136-145) 09/19/19 06:10 Corrected Sodium TNP 09/19/19 06:10 Potassium 4.4 mmol/L (3.5-5.1) 09/19/19 06:10 Chloride 111 mmol/L (98-107) H 09/19/19 06:10 Carbon Dioxide 21.6 mmol/L (21-32) 09/19/19 06:10 BUN 33 mg/dL (7-18) H 09/19/19 06:10 Creatinine 3.12 mg/dL (0.55-1.02) H 09/19/19 06:10 Est GFR (MDRD) Af Amer 20 (>60) L 09/19/19 06:10 Est GFR (MDRD) Non-Af 16 (>60) L 09/19/19 06:10 Glucose 102 mg/dL (65-99) H 09/19/19 06:10 Calcium 8.2 mg/dL (8.5-10.1) L 09/19/19 06:10 Corrected Calcium TNP 09/16/19 15:13 Total Bilirubin 0.40 mg/dL (0.2-1.0) 09/16/19 15:13 AST 13 Units/L (15-37) L 09/16/19 15:13 ALT 15 Units/L (12-78) 09/16/19 15:13 Alkaline Phosphatase 136 Units/L (46-116) H 09/16/19 15:13 Total Protein 7.6 g/dL (6.4-8.2) 09/16/19 15:13 Albumin 4.1 g/dL (3.4-5.0) 09/16/19 15:13 Globulin 3.5 g/dL (2.5-4.5) 09/16/19 15:13 Albumin/Globulin Ratio 1.2 Ratio (1.1-2.1) 09/16/19 15:13 Reason For Visit: cva Discharge Date Discharge Date: 09/19/19 Discharge Diagnosis All Active Problems (Updated 09/18/19 @ 09:11 by Glenna Last) Thrombocytopenia (Acute) Hx of renal calculi (Acute) TENZIN (acute kidney injury) (Acute) Uncontrolled hypertension (Acute) Acute left hemiparesis (Acute) CVA (cerebral vascular accident) (Acute) Plan of Treatment: Continue with present treatment and follow up plan. Pt is to keep follow up appointment as instructed and take medications as ordered. Discharge Medications Discharge Medications: No Known Drug Allergies Allergy (Verified 09/16/19 21:45) CONTINUE taking the following medications hydralazine 25 mg PO BID 09/18/19 [History] olmesartan-hydrochlorothiazide [Benicar HCT] 1 tab PO DAILY 09/18/19 [History] New Prescriptions albuterol sulfate [Ventolin HFA] 2 puff IN Q6H PRN #6.7 g 09/19/19 [Rx] aspirin 81 mg PO DAILY 30 Days #30 tab 09/19/19 [Rx] atorvastatin 40 mg PO DAILY 30 Days #30 tab 09/19/19 [Rx] Follow up and Referral Follow Up: 1 Week (PCP) Discharge Disposition Assessment: Patient stable no acute distress noted at time of discharge. Discharge Disposition: home
[2019-09-19 09:27] VITALS: BP 161/80
[2019-09-19] MEDS: BENICAR TAB 40 MG PO SCH (09:53)
[2019-09-19] MEDS: ASPIRIN EC 81 MG PO SCH (09:53)
[2019-09-19] MEDS: LIPITOR TAB 40 MG PO SCH (09:54)
[2019-09-19] MEDS: HYDROCHLOROTHIAZIDE 12.5 MG CAP PO SCH (09:54)
== END 2019-09-19 10:40 | disposition home or self-care (01) | DRG 65 ==
LOC: ER 14:35 → ICU 18:46
PROVIDERS: ADMIT Internal Medicine; ATTEND Internal Medicine
DX: I10 Essential (primary) hypertension; D69.6 Thrombocytopenia, unspecified; Z87.442 Personal history of urinary calculi; R53.1 Weakness; R26.89 Other abnormalities of gait and mobility; R94.31 Abnormal electrocardiogram [ECG] [EKG]; I63.9 Cerebral infarction, unspecified; N17.8 Other acute kidney failure
CPT/HCPCS: 36415; 70450; 70551; 71020; 71046; 80048; 80053; 85025; 93005; 93306; 93880; 96365; 97110; 97116; 97162; 97166; 99285; A4222; J0360; J7030